=== PATIENT | male | born 1930 | race African-American/Black ===

== ENCOUNTER 2018-08-16 00:22 | Emergency (ER) | payer MEDICARE ==
[~2018-08-16] VITALS: Ht 193 cm; Wt 88.6 kg
[2018-08-16] MEDS ORDERED: ASPIRIN 81 MG CHEWABLE TABLET PO ONE (02:45)
[2018-08-16 02:55] LABS: BASOPHILS % (AUTO) 0.7 % (0.0-2.0); HEMATOCRIT 45.2 % (41-53); HEMOGLOBIN 14.8 g/dL (13.5-17.5); LYMPHOCYTES % (AUTO) 16.7 % (22.0-44.0); MEAN CORPUSCULAR HGB CONC 32.8 G/dL (31.0-37.0); MEAN CORPUSCULAR VOLUME 94 fL (80-100); MONOCYTES # (AUTO) 0.4 K/uL (0.1-1.0); MONOCYTES % (AUTO) 6.3 % (2.0-9.0); NEUTROPHILS # (AUTO) 4.1 K/uL (1.8-7.7); NEUTROPHILS % (AUTO) 71.3 % (40.0-70.0); PLATELET COUNT (AUTO) 171 K/uL (150-450); RED BLOOD CELL COUNT(AUTO) 4.79 MIL/uL (4.50-5.90); RED CELL DISTRIBUTION WIDTH 13.7 % (11.5-14.5)
[2018-08-16 03:03] LABS: ANION GAP 10 mmol/L (8-16); CALCIUM, TOTAL 8.8 mg/dL (8.8-10.5); CARBON DIOXIDE 26 mmol/L (22-29); CHLORIDE 106 mmol/L (98-107); GLUCOSE,RANDOM 108 mg/dL (70-110); POTASSIUM 4.9 mmol/L (3.5-5.1); SODIUM SERUM 142 mmol/L (136-145); UREA NITROGEN, BLOOD 20 mg/dL (7-18)
[2018-08-16 03:04] LABS: GLOMERULAR FILTR. RATE CALC > 60 mL/min (>60)
[2018-08-16 03:05] LABS: PROTHROMBIN TIME 10.4 SEC (9.4-11.6)
[2018-08-16 03:09] LABS: ALANINE AMINOTRANSFERASE 17 U/L (12-78); ALBUMIN 3.4 g/dL (3.4-5.0); ALKALINE PHOSPHATASE 234 U/L (46-116); ASPARTATE AMINOTRANSFERASE 18 U/L (15-37)
[2018-08-16 03:15] LABS: B-TYPE NATRIURETIC PEPTIDE 373 pg/mL (0-100)
[2018-08-16 03:29] LABS: APPEARANCE,URINE CLEAR (CLEAR); BILIRUBIN,URINE NEGATIVE (NEGATIVE); GLUCOSE, URINE (UA) NEGATIVE (NEGATIVE); KETONES,URINE NEGATIVE (NEGATIVE); LEUKOCYTE ESTERASE ,URINE NEGATIVE (NEGATIVE); NITRATE,URINE NEGATIVE (NEGATIVE); OCCULT BLOOD,URINE SMALL (NEGATIVE); PH,URINE 5.5 (5.0-8.0); PROTEIN,URINE POS 1+ (NEGATIVE); UROBILINOGEN,URINE 0.2 mg/dL (<=1.0)
[2018-08-16 03:35] LABS: BACTERIA,URINE None Seen /HPF (None Seen); SQUAMOUS EPITHELIAL CELL,UR Few /LPF (None Seen); WBC,URINE 0-2 /HPF (0-5)
[2018-08-16] MEDS ORDERED: NITROGLYCERIN 2% (1 GM=INCH) PACKET TP ONE (04:15)
[2018-08-16 04:30] VITALS: BP 161/90
== END 2018-08-16 05:11 | disposition left against medical advice (07) ==
LOC: EMS 00:22
DX: R06.02 Shortness of breath (principal); R07.89 Other chest pain; R00.2 Palpitations; I10 Essential (primary) hypertension
CPT/HCPCS: 93005

== ENCOUNTER 2019-05-03 15:27 | Emergency (ER) | payer MEDICARE ==
[~2019-05-03] VITALS: Ht 193 cm; Wt 88.6 kg
[2019-05-03 17:00] LABS: BASOPHILS % (AUTO) 0.2 % (0.0-2.0); EOSINOPHILS % (AUTO) 0.4 % (1.0-6.0); HEMATOCRIT 42.3 % (41-53); HEMOGLOBIN 14.1 g/dL (13.5-17.5); LYMPHOCYTES # (AUTO) 0.5 K/uL (1.0-4.8); LYMPHOCYTES % (AUTO) 6.5 % (22.0-44.0); MEAN CORPUSCULAR HEMOGLOBIN 31.2 pg (26.0-34.0); MEAN CORPUSCULAR HGB CONC 33.4 G/dL (31.0-37.0); MEAN CORPUSCULAR VOLUME 94 fL (80-100); MONOCYTES # (AUTO) 0.5 K/uL (0.1-1.0); MONOCYTES % (AUTO) 6.4 % (2.0-9.0); NEUTROPHILS # (AUTO) 6.8 K/uL (1.8-7.7); NEUTROPHILS % (AUTO) 86.5 % (40.0-70.0); PLATELET COUNT (AUTO) 168 K/uL (150-450); RED BLOOD CELL COUNT(AUTO) 4.52 MIL/uL (4.50-5.90); RED CELL DISTRIBUTION WIDTH 13.4 % (11.5-14.5)
[2019-05-03 17:12] LABS: ANION GAP 12 mmol/L (8-16); CALCIUM, TOTAL 8.5 mg/dL (8.8-10.5); CARBON DIOXIDE 21 mmol/L (22-29); CHLORIDE 110 mmol/L (98-107); GLUCOSE,RANDOM 107 mg/dL (70-110); POTASSIUM 3.5 mmol/L (3.5-5.1); SODIUM SERUM 143 mmol/L (136-145); UREA NITROGEN, BLOOD 14 mg/dL (7-18)
[2019-05-03 17:15] LABS: ALANINE AMINOTRANSFERASE 27 U/L (12-78); ALBUMIN 2.7 g/dL (3.4-5.0); ALKALINE PHOSPHATASE 187 U/L (46-116); ASPARTATE AMINOTRANSFERASE 14 U/L (15-37); BILIRUBIN,TOTAL 1.6 mg/dL (0.1-1.0); CREATINE KINASE, TOTAL ONLY 65 U/L (39-308); TOTAL PROTEIN, SERUM 6.7 g/dL (6.4-8.2)
[2019-05-03 17:21] LABS: GLOMERULAR FILTR. RATE CALC > 60 mL/min (>60)
[2019-05-03 17:23] LABS: B-TYPE NATRIURETIC PEPTIDE 265 pg/mL (0-100)
[2019-05-03 17:27] LABS: APPEARANCE,URINE CLEAR (CLEAR); GLUCOSE, URINE (UA) NEGATIVE (NEGATIVE); KETONES,URINE TRACE mg/dL (NEGATIVE); LEUKOCYTE ESTERASE ,URINE NEGATIVE (NEGATIVE); NITRATE,URINE NEGATIVE (NEGATIVE); OCCULT BLOOD,URINE NEGATIVE (NEGATIVE); PROTEIN,URINE TRACE (NEGATIVE)
[2019-05-03 17:28] LABS: BILIRUBIN,URINE PRELIM. POSITIVE (NEGATIVE)
[2019-05-03 17:39] LABS: INR 1.1 (0.9-1.1); PROTHROMBIN TIME 11.3 SEC (9.4-11.6)
[2019-05-03] MEDS ORDERED: SODIUM CHLORIDE 0.9% 1,000 ML IV ONE (17:45)
[2019-05-03] MEDS ORDERED: AmLODIPine BESYLATE 5 MG TABLET PO ONE (18:15)
[2019-05-03 18:36] VITALS: BP 147/84
== END 2019-05-03 19:19 | disposition home or self-care (01) ==
LOC: EMS 15:28
DX: I10 Essential (primary) hypertension (principal); R42 Dizziness and giddiness; Z98.890 Other specified postprocedural states
CPT/HCPCS: 93005; J7030